=== PATIENT | female | born 1930 | race Caucasian/White ===

== ENCOUNTER → 2018-07-28 | Day surgery (SDC) | payer MEDICARE ==
[~2018-07-28] MED LIST: BUSP5TAB PO; CLONIDINE PATCH TOP; DILT120C80 PO; FURO20TA3 PO; IV RINGERS,LACTATED 1000ML 1,000 ML IV SCH; LIDOCAINE 1% PF 2 ML VIAL. ID PRN; LORA0.5T PO; LOSA50TA7 PO; MIDAZOLAM HCL/PF 2 MG/2 ML VIAL. IV PRN; OMEP40CA5 PO; SIMV20TA3 PO; fentaNYL PF VIAL 100 MCG/2 ML VIAL IV PRN
[2018-07-28 17:39] VITALS: BP 174/77
== END | disposition home or self-care (01) ==
LOC: SURG 16:14
PROVIDERS: ATTEND Internal Medicine Gastroenterology
DX: K29.50 Unspecified chronic gastritis without bleeding (principal); I10 Essential (primary) hypertension; F41.9 Anxiety disorder, unspecified; E78.00 Pure hypercholesterolemia, unspecified; M19.90 Unspecified osteoarthritis, unspecified site; Z86.73 Personal history of transient ischemic attack (TIA), and cerebral infarction without residual deficits; Z86.010 Personal history of colon polyps; Z82.3 Family history of stroke; Z79.82 Long term (current) use of aspirin; Z88.8 Allergy status to other drugs, medicaments and biological substances; Z79.899 Other long term (current) drug therapy; Z98.890 Other specified postprocedural states
CPT/HCPCS: 43235